=== PATIENT | male | born 1985 | race Caucasian/White ===

== ENCOUNTER 2017-07-28 21:54 | Emergency (ER) | payer OTHER ==
[~2017-07-28] VITALS: Ht 180.3 cm; Wt 100.2 kg
[2017-07-29 00:51] LABS: MCH 29.7 PG (29.0-34.0); MCHC 33.3 G/DL (30.0-36.0); MCV 89.3 FL (86-99); MEAN PLAT.VOLUME 10.6 uM^3 (9.0-12.4); PLATELET COUNT 126 K/uL (156-360); RBC DIS.WIDTH-CV 12.7 % (11.8-14.6); RBC DIS.WIDTH-SD 41.5 % (39-53); RED BLOOD COUNT 4.48 M/uL (4.00-5.50); WHITE BLOOD COUNT 6.1 K/uL (4.1-10.2)
[2017-07-29 00:55] LABS: PROTHROMBIN TIME 11.5 SEC (10.2-12.9)
[2017-07-29 00:58] LABS: PTT 27.1 SEC (25-37)
[2017-07-29 01:00] LABS: CHLORIDE 106 mEq/L (99-109); POTASSIUM 3.9 mEq/L (3.7-5.4); SODIUM 143 mEq/L (136-147)
[2017-07-29 01:01] LABS: GLUCOSE 72 mg/dL (70-99)
[2017-07-29 01:03] LABS: ANION GAP 11 MEQ/L (2-14)
[2017-07-29 01:05] LABS: GFR ESTIMATE (CALCULATED) > 59 mL/min/
[2017-07-29 01:06] LABS: UREA NITROGEN (BUN) 27 mg/dL (9-23)
[2017-07-29] MEDS ORDERED: XARELTO15 MG PO (01:14)
[2017-07-29 01:25] VITALS: BP 155/91
== END 2017-07-29 01:34 | disposition home or self-care (01) ==
LOC: EME 21:54 → EXP 21:54
PROVIDERS: Physician Assistant
DX: I82.492 Acute embolism and thrombosis of other specified deep vein of left lower extremity (principal); Z86.718 Personal history of other venous thrombosis and embolism
CPT/HCPCS: 80048; 85027; 85610; 85730; 93971; 99281; 99284